=== PATIENT | female | born 1965 | race Caucasian/White ===

== ENCOUNTER → 2021-12-23 | Outpatient (CLI) | payer BC, SELFPAY ==
--- NOTE | 2021-12-23 08:23 | MRI_ITS ---
STUDY: MRI LEFT ANKLE WITHOUT CONTRAST REASON FOR EXAM: Anterior left ankle pain since October, evaluate for tendon rupture. TECHNIQUE: Standardized fat and water weighted pulse sequences were obtained in all 3 orthogonal planes. COMPARISON: None. FINDINGS: Normal subcutis adipose space. There is a very small volume of fluid in the submalleolar posterior tibialis tendon sheath (inversion recovery sagittal image 4). The posterior tibialis tendon is morphologically. There is a very small volume of fluid in the flexor digitorum longus tendon sheath proximal to the sustentaculum june (inversion recovery sagittal image 6). The flexor digitorum longus tendon is morphologically normal. There is a small volume of fluid in the flexor hallucis longus tendon sheath proximal and distal to the sustentaculum june (inversion recovery sagittal images 8, 10). Normal peroneus longus and brevis tendons. Normal tibialis anterior tendon. Normal extensor hallucis longus tendon. Normal extensor digitorum longus tendons. Normal Achilles tendon and teno-osseous insertion. Normal plantar fascia. Normal plantar calcaneal tubercles. Normal intrinsic muscles of the rearfoot. Normal distal tibiofibular syndesmotic ligamentous complex. Normal lateral ligamentous complex. There are small cysts in the sinus tarsi (inversion recovery sagittal images 11, 12). Normal deltoid ligamentous complexes. Normal plantar calcaneonavicular (spring) ligament. Normal tibiotalar articulation. Normal talar dome. Normal subtalar articulations. Normal talonavicular articulation. There is bone edema in the anterior calcaneus including the anterior superior calcaneal process (inversion recovery sagittal images 12, 13), a stress phenomenon. Normal calcaneocuboid articulation. Normal navicular-cuneiform articulations. MRI/Lower Ext Joint Only (Routine) IMPRESSION: Mild flexor hallucis longus tenosynovitis. Very mild posterior tibialis and flexor digitorum longus tenosynovitis. Bone edema in the anterior calcaneus, a stress phenomenon. Small cysts in the sinus tarsi. No demonstrated tendon tear. Electronically Signed: Alber Aden MD at 13:57 EDT ,
== END | disposition home or self-care (01) ==
LOC: MRI 08:18
PROVIDERS: PCP Family Medicine; Visit Provider Podiatrist
DX: M66.862 Spontaneous rupture of other tendons, left lower leg (principal)
CPT/HCPCS: 73721

== ENCOUNTER 2022-06-03 11:00 | Outpatient (RCR) | payer BC, SELFPAY ==
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
--- NOTE | 2022-06-03 11:33 | HP.PTREVAL ---
KARLOS Liriano, It has been my pleasure to treat VICKI ENAMORADO over the last 7 visits for R HIP AND LBP. R SCIATIC NERVE LESION. R HIP IMPINGEMENT. PIRIFORMIS SYN. Please see the progress note below for an update on the physical therapy plan of care! Subjective: Pt. rates right hip and groin pain at 3/10 today. She is trying to get her work accomadations figured out as going up and down stairs just kill her. Pt. reports that she also has difficulty with sitting longer than 30 minutes, occasionally sleeping, and walking long periods of time. Pt. reports that she is about 50% better since starting physical therapy. Pt. does not have a follow up with her doctor scheduled and is hoping to get an MRI eventually. Objective/Function: Vicki has come to 7 sessions of physical therapy focusing on aquatic therapy to reduce back and right hip pain. Reviewed pt. goals for therapy and she has not met her goals but is progressing with less pain. Discussed with pt. about continuing with further physical therapy with benefits of both aquatic vs. land but she wanted to follow up with her doctor first. Pt. may benefit from further physical therapy and also possibly further diagnostic imaging of her right hip. She is to schedule an appointment with her doctor at this time and continue with her current HEP. Plan Plan: Pt. to follow up with her doctor. Educated pt. to continue with her current HEP. May continue with aquatic vs. land therapy if she decides to continue with therapy in order to meet her goals and improve mobility. Balance/Gait/Functional tests - Balance/Special Test Scores Oswestry Low Back Score: 21 Goals Goal 1:: DECREASE C/O LOW BACK, RIGHT HIP AND LORA LE SX'S. Goal Time Frame: 4-6 Weeks Goal Progress: Progressing Goal 2:: IMPROVE PERSONAL CARE, LIFTING, WALKING, SITTING, STANDING, SLEEP, TRAVEL AND WORK/HOMEMAKING FUNCTION. Goal Time Frame: 4-6 Weeks Goal Progress: Progressing Goal 3:: INSTRUCT IN PROPHYLAXIS Goal Time Frame: 4-6 Weeks Goal Progress: Progressing Goal 4:: Pt. will be able to sit for at least 30 minutes with pain < 3/10. Goal Time Frame: 4-6 Weeks Goal Progress: Progressing Goal 5:: Pt. will be able to complete a full day of work activity with pain < 3/10. Goal Time Frame: 4-6 Weeks Goal Progress: Progressing Anticipated Interventions Patient/Client Instruction: Educate patient on: Condition, Plan of Care, Risk Factors For the Purpose of:: To improve self management Therapeutic Exercise to Include: Strength training, Body mechanics, Postural training, Flexibilty training, Neuromotor development, In an aquatic setting, Dynamic Lumbar Stabilization For the Purpose of:: To decrease pain, To improve muscle performance and motor function, To increase tolerance to activity/condition/position, To improve ability of physical actions for home/community/work/leisure Please do not hesitate to contact me at [phone] by phone or if you have questions or concerns regarding this new plan of care! Sincerely, Omar Lindo
--- NOTE | 2022-10-14 11:22 | HP.PT.NRP ---
VICKI ENAMORADO was seen in my office for initial evaluation on 04/30/22. The following Plan of Care was established for this patient: Initial Frequency: 2-3x /Week Initial Duration: 4-6 Weeks Patient/Client Instruction: Educate patient on: Condition, Plan of Care, Risk Factors For the Purpose of:: To improve self management Therapeutic Exercise to Include: Strength training, Body mechanics, Postural training, Flexibilty training, Neuromotor development, In an aquatic setting, Dynamic Lumbar Stabilization For the Purpose of:: To decrease pain, To improve muscle performance and motor function, To increase tolerance to activity/condition/position, To improve ability of physical actions for home/community/work/leisure This patient was last seen in our office 06/03/22. Pertinent comments regarding their Physical therapy will appear below: This patient has not returned to Physical Therapy and is appropriate to return to MD for further follow-up as needed. At this point I will be discontinuing this patient from physical therapy. I would be happy to see this patient again in the future if found appropriate by the physician. Thank you! Marianna Goldstein, PT, Cert MDT Balance/Gait/Functional tests - Balance/Special Test Scores Oswestry Low Back Score: 21
== END 2022-06-03 19:00 | disposition home or self-care (01) ==
LOC: PT 11:00
PROVIDERS: PCP Family Medicine; Visit Provider Physician Assistant
DX: M25.551 Pain in right hip (principal); M54.50 Low back pain, unspecified; G57.01 Lesion of sciatic nerve, right lower limb; M25.851 Other specified joint disorders, right hip
CPT/HCPCS: 97112; 97113; 97162; 97164

== ENCOUNTER → 2022-08-19 | Outpatient (CLI) | payer BC, SELFPAY ==
--- NOTE | 2022-08-19 08:05 | MRI_ITS ---
EXAM: MR RIGHT LOWER EXTREMITY WITHOUT INTRAVENOUS CONTRAST, HIP CLINICAL INDICATION: pain TECHNIQUE: Multiplanar and multisequence MR images of the right hip without intravenous contrast. This report was created using [employer] report generation technology. COMPARISON: None. FINDINGS: TENDONS: FLEXORS: Unremarkable. Intact. EXTENSORS/HAMSTRING: Altered signal potentially representing a low-grade partial thickness tear at the ischial attachment of the semimembranosus and also the conjoint hamstring tendon on the right side with a background of mild tendinosis. A similar appearance is also seen on left side. Correlate for any tenderness to palpation. ABDUCTORS: Unremarkable. Intact. ADDUCTORS: Unremarkable. Intact. ROTATORS: Unremarkable. Intact. MUSCLES: Unremarkable. Normal bulk and signal. FLUID: Unremarkable. No significant hip joint effusion. No bursitis and no other masses or fluid collections. LABRUM: Unremarkable. No gross evidence for any acetabular labral tearing. CARTILAGE: Unremarkable. No focal chondral defects or any significant arthritic changes involving the hips. BONES/JOINTS: No osteonecrosis or any other bone marrow signal alterations. OTHER SOFT TISSUES: Unremarkable. MRI/Lower Ext Joint Only (Routine) IMPRESSION: Altered signal potentially representing a low-grade partial-thickness tear at the ischial attachment of the right semimembranosus and also the adjacent right conjoint hamstring tendon on a background of mild tendinosis. A similar appearance is also seen on left side. Correlate for any tenderness to palpation. No other significant internal derangement. Electronically Signed: Bladimir Chery MD at 22:48 EST ,
== END | disposition home or self-care (01) ==
PROVIDERS: PCP Family Medicine; Referring Provider Physician Assistant; Visit Provider Physician Assistant
DX: M25.851 Other specified joint disorders, right hip (principal); G57.01 Lesion of sciatic nerve, right lower limb
CPT/HCPCS: 73721